=== PATIENT | female | born 1950 | race Caucasian/White ===

== ENCOUNTER 2016-12-05 11:35 | Emergency (ER) | payer MEDICARE, OTHER ==
[2016-12-05 11:40] VITALS: BP 173/79
[2016-12-05] MEDS ORDERED: Ibuprofen TAB* 600 MG PO ONE (12:21)
[2016-12-05] MEDS ORDERED: Tetan/Diph/Pertus SYR(Tdap)* 0.5 ML SYR(BOOSTRIX) use SYR IM ONE (12:21)
--- NOTE | 2016-12-05 12:38 | ED ---
Complex/Multi-Sys Presentation - HPI Summary HPI Summary: Pt presents w/ fall prior to arrival. Was standing on a chair, cleaning her cupboards when the chair she was standing on slipped. She fell and landed on back - hit back of head but denies LOC. She has a bump on her head but denies MICHEL , visual change, photophobia, nausea, vomiting, new tinnitus (has this at baseline), confusion, amnesia. She does have some neck soreness which she believes is the result of trying to brace her neck for the fall - feels sore along the sides, worse w/ movement. Denies numbness, tingling, weakness into extremities. Hit her Rt elbow in the process - bleeding but moving well. No back pain, chest pain, ab pain. She is able to move all of extremities well w/o pain or restriction but does report "tightness" in tibial region where she has a hematoma forming w/ Rt ankle movements. She has been able to bear weight and ambulate w/o difficulty. Takes 81mg ASA BID. Not sure when her last tetanus vaccine was administered but believes this was a long time ago. - History Of Current Complaint Chief Complaint: EDExtremityLower Time Seen by Provider: 12/05/16 11:49 Hx Obtained From: Patient PMH/Surg Hx/FS Hx/Imm Hx Previously Healthy: Yes Endocrine/Hematology History: Reports: Hx Coagulopothy - possibly? 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 Negative: incontinence Musculoskeletal: Other - see HPI Skin: Other - see HPI Negative: Headache, Weakness, Paresthesia, Numbness, Syncope, Slurred Speech Psychological: Normal All Other Systems Reviewed And Are Negative: Yes Physical Exam Triage Information Reviewed: Yes Vital Signs On Initial Exam: Initial Vitals Temp Pulse Resp BP Pulse Ox 98.6 F 74 18 173/79 99 12/05/16 11:36 12/05/16 11:36 12/05/16 11:36 12/05/16 11:36 12/05/16 11:36 Vital Signs Reviewed: Yes Appearance: Positive: Well-Appearing, No Pain Distress, Well-Nourished Skin: Positive: Warm - Rt dorsal aspect of olecranon process w/ linear laceration - hemostasis s/p pressure application however w/ flexion, wound opens and starting to ooze blood again - controlled w/ pressure again - appears clean; superficial abrasion over Rt anterior tibial region w/ underlying ecchymotic hematoma - TTP Head/Face: Positive: Other - palpable hematoma over posterior scalp - mild TTP- no laxity in skull bones Eyes: Positive: Normal, EOMI, ALEX, Conjunctiva Clear ENT: Positive: Normal ENT inspection, Hearing grossly normal, Pharynx normal, TMs normal - no hemotympanum observed, no battlesign, no raccoon sign. Negative : Nasal drainage Dental: Negative: Dental Fracture @ Neck: Positive: Nontender - trapezius mm are taught and hypertonic B/L; spinous pp NTTP Respiratory/Lung Sounds: Positive: Clear to Auscultation, Breath Sounds Present Cardiovascular: Positive: Normal, RRR Abdomen Description: Positive: Nontender, Soft Bowel Sounds: Positive: Present Musculoskeletal: Positive: Normal, Strength/ROM Intact - pain in tibial region w / ankle movement; bearing weight Neurological: Positive: Normal, Sensory/Motor Intact, Alert, Oriented to Person Place, Time, CN Intact II-III Psychiatric: Positive: Normal - [place] Coma Scale Coma Scale Total: 15 Procedures - Laceration/Wound Repair 1 Location: upper extremity - Rt elbow, dorsal aspect Description: Linear - 0.75cm Anesthesia: Local, 1.0%, Lido, Epi Length, Depth and Shape: 0.75 cm x 4mm Betadine Prep?: Yes Irrigated w/ Saline (ccs): 100 Laceration/Wound Explored: clean Closure: Single Layer Suture Type: Nylon - 5-0 Number of Sutures: 3 Layer Closure?: No Sterile Dressing Applied?: Yes - triple anbx ointment + tegaderm + gauze + SEGUNDO Diagnostics - Vital Signs Vital Signs Temp Pulse Resp BP Pulse Ox 12/05/16 11:44 98.6 F 74 18 173/79 99 12/05/16 11:36 98.6 F 74 18 173/79 99 - Laboratory Lab Statement: Any lab studies that have been ordered have been reviewed, and results considered in the medical decision making process. Complex Multi-Symp Course/Dx Course Of Treatment: D/t pt's lack of anti-coagulant therapy, lack of neurological deficit and no LOC, the pt, her and myself agreed she did not need a brain CT at this time however they would monitor for danger s/sx and return to ED if changes present. - Diagnoses Provider Diagnoses: Elbow laceration, Hematoma of scalp, Hematoma of right lower extremity, Abrasion of right lower leg, Head injury Discharge - Discharge Plan Condition: Stable Disposition: HOME Patient Education Materials: Head Injury (ED), Hematoma (ED), Abrasion (ED), Laceration (ED), Care For Your Stitches (ED) Referrals: [facility] [place] [facility] [Outside] Additional Instructions: Keep wound dressing in place for 48 hours. After this time, you may remove dressing and gently wash daily with soap and water - rinse well and pat dry. Reapply triple antibiotic ointment and clean gauze dressing followed by SEGUNDO wrap. Rest, ice, elevate and compress w/ bandage (same can be done for leg injury). Follow-up with PCP in 10-14 days for wound check and suture removal. If the area develops redness, swelling, purulent drainage, fever, chills or streaking, seek medical attention sooner. A contact number for PCP referral has been provided here. Call today to schedule future appointment.
--- NOTE | 2016-12-05 13:06 | RAD ---
Indication: Anterior LEFT lower leg bruising post fall. Comparison: None. Technique: AP and crosstable lateral views RIGHT lower leg. Report: Negative for fracture or articular malalignment. Anterior soft tissue swelling most prominent centered 17 cm below the tibial plateau. Osteoarthritis noted at the ankle and foot. Achilles tendon insertion and plantar fascia origin bone spurs. IMPRESSION: Anterior soft tissue swelling without evidence for fracture.
== END 2016-12-05 14:06 | disposition home or self-care (01) ==
LOC: ED 11:35
DX: S51.011A Laceration without foreign body of right elbow, initial encounter (principal); S00.03XA Contusion of scalp, initial encounter; S80.811A Abrasion, right lower leg, initial encounter; S80.11XA Contusion of right lower leg, initial encounter; S09.90XA Unspecified injury of head, initial encounter; W07.XXXA Fall from chair, initial encounter; Y93.E9 Activity, other interior property and clothing maintenance; Y92.9 Unspecified place or not applicable
CPT/HCPCS: 90471; 90715; 99282; A9270-GY